=== PATIENT | male | born 2005 | race Hispanic/Latino ===

== ENCOUNTER 2023-10-09 09:32 | Inpatient (IN) | payer OTHER ==
[~2023-10-09] VITALS: Ht 185.4 cm; Wt 77.1 kg
[2023-10-09 10:03] LABS: BASOPHILS # (AUTO) 0.02 K/uL (0.00-0.20); BASOPHILS % (AUTO) 0.2 % (0.0-5.0); HEMATOCRIT 41.4 % (42-54); IMMATURE GRANULOCYTE ABSOLUTE 0.02 K/uL (0-1); LYMPHOCYTES # (AUTO) 1.4 K/uL (1.0-4.8); LYMPHOCYTES % (AUTO) 14.6 % (21.0-51.0); MEAN CORPUSCULAR HEMOGLOBIN 30.6 pg (27.0-33.0); MEAN CORPUSCULAR HGB CONC 34.8 g/dL (32.0-36.0); MEAN CORPUSCULAR VOLUME 88.1 fL (80-100); MONOCYTES # (AUTO) 1.1 K/uL (0.1-1.0); MONOCYTES % (AUTO) 11.5 % (3.0-13.0); NEUTROPHILS # (AUTO) 6.9 K/uL (1.8-7.7); NEUTROPHILS % (AUTO) 73.5 % (40.0-77.0); PLATELET COUNT (AUTO) 242 K/uL (130-400); RED CELL DISTRIBUTION WIDTH 12.1 % (11.0-15.5); WHITE BLOOD COUNT (AUTO) 9.4 K/uL (4.8-10.8)
[2023-10-09 10:11] LABS: CREATININE 0.8 mg/dL (0.5-1.5); POTASSIUM 3.9 mmol/L (3.5-5.1)
[2023-10-09 10:17] LABS: ALBUMIN 4.3 g/dL (3.5-5.0); BILIRUBIN,TOTAL 0.7 mg/dL (0.2-1.0); TOTAL PROTEIN, SERUM 7.8 g/dL (6.0-8.3)
[2023-10-09] MEDS: MORPHINE 4 MG SYG IVP ONE (10:24)
[2023-10-09] MEDS: ONDANSETRON 4MG INJ IVP ONE (10:24)
[2023-10-09] MEDS: TETANUS/DIPHTHERIA TOXOID [ADULT] 0.5 ML VIAL IM ONE (10:25)
[2023-10-09] MEDS: CEFAZOLIN SODIUM 2 GM VIAL IVPB STA (10:26)
[2023-10-09] MEDS: HYDROMORPHONE 1 MG INJ IVP ONE (11:05)
[2023-10-09] MEDS: HYDROMORPHONE 1 MG INJ ONE (11:05)
[2023-10-09] MEDS ORDERED: ACETAMINOPHEN 325 MG TAB PO SCH (13:30)
[2023-10-09] MEDS ORDERED: ACETAMINOPHEN 325 MG TAB PO PRN (14:00)
[2023-10-09] MEDS: 0.9%NACL 1000ML 1,000 ML IV SCH (14:02)
[2023-10-09] MEDS: PANTOPRAZOLE 40 MG/VIAL IVP SCH (14:02)
[2023-10-09] MEDS: KETOROLAC 15MG/ML VIAL (15MG/ML) IV PRN (14:12)
[2023-10-09 14:14] LABS: INR 0.98 (0.85-1.15); PROTHROMBIN TIME 11.4 SEC (9.6-11.6)
[2023-10-09 14:15] LABS: PARTIAL THROMBOPLASTIN TIME 29.7 SEC (26.3-35.5)
[2023-10-09 14:18] LABS: ALCOHOL, BLOOD < 3 mg/dL (0-10); CREATINE KINASE, TOTAL 217 U/L (21-232)
[2023-10-09] MEDS: CEFAZOLIN SODIUM 1 GM VIAL IVPB SCH ×2 (15:00→21:13)
[2023-10-09] MEDS ORDERED: IPRATROPIUM/ALBUTEROL SULFATE 3 ML SOLUTION IH PRN (15:30)
[2023-10-09 16:30] VITALS: BP 129/78; PULSE 76; RESP 20
[2023-10-09] MEDS: HYDROMORPHONE 0.5 MG SYG (0.5MG/0.5ML) IVP PRN (18:10)
[2023-10-09 19:20] VITALS: O2SAT 99
[2023-10-09] MEDS: ONDANSETRON 4MG INJ IVP PRN (19:43)
[2023-10-09 20:00] VITALS: BP 127/73; PULSE 81; RESP 17
[2023-10-10] VITALS (7 sets, daily range): BP systolic 123–138; BP diastolic 58–76; PULSE 83–97; RESP 18; O2SAT 99
[2023-10-10 05:27] LABS: BASOPHILS # (AUTO) 0.05 K/uL (0.00-0.20); BASOPHILS % (AUTO) 0.6 % (0.0-5.0); EOSINOPHILS # (AUTO) 0.02 K/uL (0.00-0.70); EOSINOPHILS % (AUTO) 0.2 % (0.0-8.0); HEMATOCRIT 38.1 % (42-54); IMMATURE GRANULOCYTE ABSOLUTE 0.02 K/uL (0-1); LYMPHOCYTES # (AUTO) 1.8 K/uL (1.0-4.8); LYMPHOCYTES % (AUTO) 20.3 % (21.0-51.0); MEAN CORPUSCULAR HEMOGLOBIN 30.3 pg (27.0-33.0); MEAN CORPUSCULAR HGB CONC 33.1 g/dL (32.0-36.0); MEAN CORPUSCULAR VOLUME 91.6 fL (80-100); MONOCYTES # (AUTO) 1.2 K/uL (0.1-1.0); MONOCYTES % (AUTO) 13.8 % (3.0-13.0); NEUTROPHILS # (AUTO) 5.7 K/uL (1.8-7.7); NEUTROPHILS % (AUTO) 64.9 % (40.0-77.0); PLATELET COUNT (AUTO) 208 K/uL (130-400); RED BLOOD CELL COUNT(AUTO) 4.16 MIL/uL (4.50-6.20); RED CELL DISTRIBUTION WIDTH 12.2 % (11.0-15.5); WHITE BLOOD COUNT (AUTO) 8.7 K/uL (4.8-10.8)
[2023-10-10 05:41] LABS: ALBUMIN 3.2 g/dL (3.5-5.0); BILIRUBIN,TOTAL 0.4 mg/dL (0.2-1.0); CREATININE 0.8 mg/dL (0.5-1.5); MAGNESIUM 1.8 mg/dL (1.80-2.40); POTASSIUM 3.6 mmol/L (3.5-5.1); TOTAL PROTEIN, SERUM 6.4 g/dL (6.0-8.3)
[2023-10-10] MEDS: KETOROLAC 30MG VIAL (30MG/ML) IVP PRN (22:13)
[2023-10-11] VITALS: BP 130/57; PULSE 78; RESP 18
[2023-10-11 01:20] VITALS: O2SAT 99
[2023-10-11 04:00] VITALS: BP 120/60; PULSE 76; RESP 18
[2023-10-11 05:24] LABS: BASOPHILS # (AUTO) 0.04 K/uL (0.00-0.20); BASOPHILS % (AUTO) 0.5 % (0.0-5.0); EOSINOPHILS # (AUTO) 0.17 K/uL (0.00-0.70); EOSINOPHILS % (AUTO) 2.1 % (0.0-8.0); HEMATOCRIT 34.5 % (42-54); IMMATURE GRANULOCYTE ABSOLUTE 0.03 K/uL (0-1); LYMPHOCYTES # (AUTO) 1.8 K/uL (1.0-4.8); LYMPHOCYTES % (AUTO) 22.4 % (21.0-51.0); MEAN CORPUSCULAR HEMOGLOBIN 30.3 pg (27.0-33.0); MEAN CORPUSCULAR HGB CONC 33.3 g/dL (32.0-36.0); MEAN CORPUSCULAR VOLUME 90.8 fL (80-100); MONOCYTES # (AUTO) 1.3 K/uL (0.1-1.0); MONOCYTES % (AUTO) 15.5 % (3.0-13.0); NEUTROPHILS # (AUTO) 4.9 K/uL (1.8-7.7); NEUTROPHILS % (AUTO) 59.1 % (40.0-77.0); PLATELET COUNT (AUTO) 187 K/uL (130-400); WHITE BLOOD COUNT (AUTO) 8.2 K/uL (4.8-10.8)
[2023-10-11 05:47] LABS: ALBUMIN 2.8 g/dL (3.5-5.0); BILIRUBIN,TOTAL 0.3 mg/dL (0.2-1.0); CREATININE 0.7 mg/dL (0.5-1.5); POTASSIUM 3.7 mmol/L (3.5-5.1); TOTAL PROTEIN, SERUM 5.9 g/dL (6.0-8.3)
[2023-10-11 07:29] VITALS: O2SAT 99
[2023-10-11 08:00] VITALS: BP 124/60; PULSE 85; RESP 18
[2023-10-11] MEDS ORDERED: ACET-2079 PO (10:31)
[2023-10-11] MEDS ORDERED: DOXY100T2 PO (10:31)
[2023-10-11 12:00] VITALS: BP 122/60; PULSE 90; RESP 18
== END 2023-10-11 14:20 | disposition home or self-care (01) | DRG 605 ==
LOC: EDH 09:32 → EDHIP 09:33 → UNDOADMIN 13:25 → EDHIP 13:25 → 3CH 16:30
PROVIDERS: ADMIT Internal Medicine; ATTEND Internal Medicine
DX: S91.302A Unspecified open wound, left foot, initial encounter (principal); E86.0 Dehydration; Z90.49 Acquired absence of other specified parts of digestive tract; S20.312A Abrasion of left front wall of thorax, initial encounter; S40.812A Abrasion of left upper arm, initial encounter; V89.2XXA Person injured in unspecified motor-vehicle accident, traffic, initial encounter; Y92.410 Unspecified street and highway as the place of occurrence of the external cause; Y93.89 Activity, other specified; Y99.8 Other external cause status
CPT/HCPCS: 36415; 70450; 71045; 72125; 73502; 73552; 73562; 73590; 73610; 73630; 73718; 73721; 80053; 82550; 83735; 83874; 85025; 85610; 85730; 86850; 86900; 86901; 87040; 90714; 94664; 96365; 96372; 96375; C9113; G0378; J0690; J1170; J1885; J2270; J2405; J7030; G8980-CI; G8983-CI

== ENCOUNTER 2023-11-30 09:25 | Emergency (ER) | payer OTHER ==
[~2023-11-30] VITALS: Ht 185.4 cm; Wt 74.8 kg
[~2023-11-30 09:25] MED LIST: ACET-2079 PO; DOXY100T2 PO
[2023-11-30] MEDS: KETOROLAC 60 MG VIAL (30MG/ML) IM ONE (09:56)
[2023-11-30] MEDS: MORPHINE 4 MG SYG IM ONE (10:58)
[2023-11-30] MEDS ORDERED: IBUP-2070 PO (11:16)
[2023-11-30 11:20] VITALS: BP 142/70; PULSE 72; RESP 18; O2SAT 99
== END 2023-11-30 11:29 | disposition home or self-care (01) ==
LOC: EDH 09:25
DX: S80.11XA Contusion of right lower leg, initial encounter (principal); W18.39XA Other fall on same level, initial encounter; Y93.89 Activity, other specified; Y92.89 Other specified places as the place of occurrence of the external cause; Y99.8 Other external cause status; Z90.49 Acquired absence of other specified parts of digestive tract; Z98.890 Other specified postprocedural states; Z79.899 Other long term (current) drug therapy
CPT/HCPCS: 99284; 73610; 73590; 96372 ×2; J2270; J1885

== ENCOUNTER 2024-02-20 19:22 | Emergency (ER) | payer OTHER ==
[~2024-02-20] VITALS: Ht 185.4 cm; Wt 73.0 kg
[~2024-02-20 19:22] MED LIST changes: +IBUP-2070 PO
[2024-02-20 19:31] VITALS: BP 119/66; PULSE 91; RESP 20
[2024-02-20 20:00] LABS: APPEARANCE,URINE CLEAR (CLEAR); BILIRUBIN,URINE NEGATIVE (NEGATIVE); COLOR,URINE LIGHT-YELLOW (YELLOW); GLUCOSE, URINE (UA) NEGATIVE (NEGATIVE); KETONES,URINE NEGATIVE (NEGATIVE); LEUKOCYTE ESTERASE ,URINE NEGATIVE Leu/uL (NEGATIVE); NITRATE,URINE NEGATIVE (NEGATIVE); OCCULT BLOOD,URINE NEGATIVE (NEGATIVE); PROTEIN,URINE NEGATIVE (NEGATIVE); UROBILINOGEN,URINE 0.2 mg/dL (0.2-1.0)
[2024-02-20 20:03] LABS: ADD UA MICROSCOPIC NO
[2024-02-20] MEDS: AZITHROMYCIN 250 MG TABLET PO STA (20:45)
[2024-02-20] MEDS: CEFTRIAXONE 1G VIAL IM STA (21:00)
== END 2024-02-20 21:01 | disposition home or self-care (01) ==
LOC: EDH 19:22
DX: A56.8 Sexually transmitted chlamydial infection of other sites (principal); Z79.899 Other long term (current) drug therapy; Z90.49 Acquired absence of other specified parts of digestive tract
CPT/HCPCS: 99283; 87491; 87591; 81003; 96372; J0696

== ENCOUNTER 2024-03-12 21:18 | Emergency (ER) | payer OTHER ==
[~2024-03-12] VITALS: Ht 185.4 cm; Wt 70.3 kg
[2024-03-12 22:12] VITALS: BP 137/63; PULSE 71; RESP 18; O2SAT 99
== END 2024-03-12 22:24 | disposition home or self-care (01) ==
LOC: EDH 21:18
DX: Z00.00 Encounter for general adult medical examination without abnormal findings (principal)
CPT/HCPCS: 99281

== ENCOUNTER 2024-03-14 08:15 | Emergency (ER) | payer OTHER ==
[~2024-03-14] VITALS: Ht 188 cm; Wt 72.6 kg
[2024-03-14 09:01] LABS: BASOPHILS # (AUTO) 0.05 K/uL (0.00-0.20); BASOPHILS % (AUTO) 0.4 % (0.0-5.0); HEMATOCRIT 46.9 % (42-54); IMMATURE GRANULOCYTE ABSOLUTE 0.06 K/uL (0-1); LYMPHOCYTES # (AUTO) 1.1 K/uL (1.0-4.8); LYMPHOCYTES % (AUTO) 9.6 % (21.0-51.0); MEAN CORPUSCULAR HEMOGLOBIN 30.2 pg (27.0-33.0); MEAN CORPUSCULAR HGB CONC 33.9 g/dL (32.0-36.0); MONOCYTES # (AUTO) 0.7 K/uL (0.1-1.0); MONOCYTES % (AUTO) 5.8 % (3.0-13.0); NEUTROPHILS # (AUTO) 9.9 K/uL (1.8-7.7); NEUTROPHILS % (AUTO) 83.7 % (40.0-77.0); PLATELET COUNT (AUTO) 280 K/uL (130-400); RED BLOOD CELL COUNT(AUTO) 5.27 MIL/uL (4.50-6.20); RED CELL DISTRIBUTION WIDTH 12.7 % (11.0-15.5); WHITE BLOOD COUNT (AUTO) 11.9 K/uL (4.8-10.8)
[2024-03-14 09:11] LABS: CREATININE 0.9 mg/dL (0.5-1.3); POTASSIUM 4.4 mmol/L (3.5-5.1)
[2024-03-14 09:16] LABS: BILIRUBIN,TOTAL 0.6 mg/dL (0.2-1.0); TOTAL PROTEIN, SERUM 9.2 g/dL (6.0-8.3)
[2024-03-14] MEDS: ONDANSETRON 4MG INJ IVP ONE (09:20)
[2024-03-14] MEDS: PANTOPRAZOLE 40 MG/VIAL IVP ONE (09:21)
[2024-03-14] MEDS: LACTATED RINGERS 1000ML 1,000 ML IV ONE (09:21)
[2024-03-14 09:24] LABS: AMPHET/METH SCREEN,URINE NEGATIVE (NEGATIVE); BARBITURATE SCREEN, URINE NEGATIVE (NEGATIVE); BENZODIAZEPINES SCREEN,URINE NEGATIVE (NEGATIVE); CANNABINOID SCREEN,URINE POSITIVE (NEGATIVE); COCAINE SCREEN,URINE NEGATIVE (NEGATIVE); OPIATE SCREEN,URINE NEGATIVE (NEGATIVE); PHENCYCLIDINE SCREEN,URINE NEGATIVE (NEGATIVE)
[2024-03-14 10:09] VITALS: BP 110/72; PULSE 70; RESP 18; O2SAT 99
[2024-03-14] MEDS ORDERED: ONDA-243 PO (10:28)
== END 2024-03-14 10:31 | disposition home or self-care (01) ==
LOC: EEVIPCON 08:15 → EDH 08:15
DX: R11.2 Nausea with vomiting, unspecified (principal)
CPT/HCPCS: 99284; 82550; 84484; 80053; 80305; 83690; 85025; 36415; 96374; 96361; 96375; 93005; J7120; J2405; J2470; 96365; 96368

== ENCOUNTER 2024-04-12 17:16 | Emergency (ER) | payer SELFPAY ==
[~2024-04-12] VITALS: Ht 154.9 cm; Wt 72.6 kg
[~2024-04-12 17:16] MED LIST changes: +ONDA-243 PO
[2024-04-12] MEDS: CEFTRIAXONE 1G VIAL IM ONE (18:47)
[2024-04-12] MEDS: AZITHROMYCIN 250 MG TABLET PO ONE (18:48)
[2024-04-12 19:04] LABS: APPEARANCE,URINE CLEAR (CLEAR); BILIRUBIN,URINE NEGATIVE (NEGATIVE); COLOR,URINE LIGHT-YELLOW (YELLOW); GLUCOSE, URINE (UA) NEGATIVE (NEGATIVE); KETONES,URINE NEGATIVE (NEGATIVE); LEUKOCYTE ESTERASE ,URINE 250 Leu/uL (NEGATIVE); NITRATE,URINE NEGATIVE (NEGATIVE); PH,URINE 6.5 (5.0-8.0); PROTEIN,URINE NEGATIVE (NEGATIVE); UROBILINOGEN,URINE 0.2 mg/dL (0.2-1.0)
[2024-04-12 19:12] LABS: ADD UA MICROSCOPIC YES
[2024-04-12 19:15] LABS: MUCUS,URINE FEW LPF (None Seen); SQUAMOUS EPITHELIAL CELL,UR RARE /HPF (0-2); UNCLASSIFIED CRYSTAL 2 /HPF (None Seen); WBC,URINE 51-100 /HPF (0-1)
[2024-04-12 19:33] VITALS: BP 138/62; PULSE 89; RESP 20; O2SAT 98
== END 2024-04-12 19:37 | disposition home or self-care (01) ==
LOC: EDH 17:16
DX: R36.9 Urethral discharge, unspecified (principal); Z20.2 Contact with and (suspected) exposure to infections with a predominantly sexual mode of transmission; Z79.899 Other long term (current) drug therapy
CPT/HCPCS: 99283; 87086; 87491; 87591; 81001; 96372; J0696